=== PATIENT | male | born 1960 | race Two or more races ===

== ENCOUNTER 2025-01-16 11:55 | Day surgery (SDC) | payer MEDICAID, SELFPAY ==
[2025-01-15 14:04] VITALS: BMI 23.6
[2025-01-16] VITALS (10 sets, daily range): BP systolic 101–139; BP diastolic 60–90; PULSE 78–103; RESP 14–21; TEMP 37–37.2; O2SAT 93–98; BMI 22.9
[2025-01-16] MEDS: MIDAZOLAM INJ 1 MG/ML VIAL 2 ML (ASD USE ONLY) 2 MG IV (13:09)
[2025-01-16] MEDS: RINGERS LACTATED 1000 ML 1,000 ML 100 ML IV (13:09)
[2025-01-16] MEDS: fentaNYL CIT INJ 50 mCg/ML AMP 2ML (ASD USE ONLY) IV (13:10)
--- NOTE | 2025-01-16 15:09 | SUR.PHASEII ---
1355 Pt more awake and alert. Speaks and understands [place] well. Denies pain or N/V. Abd remains soft. Analilia PO fluids. 1415 Pt assessment unchanged. No complaints. Amb with steady gait. Able to dress self. Pt requesting daughter to interpret for him. DC instructions given. Both state understanding. Pt meets dc criteria-to home.
== END 2025-01-16 14:15 | disposition home or self-care (01) ==
PROVIDERS: PCP Physician Assistant; Referring Provider Surgery; Visit Provider Surgery
PROC: 0DBE8ZX Excision of Large Intestine, Via Natural or Artificial Opening Endoscopic, Diagnostic (ICD-10-PCS; CPT 45380; principal; 2025-01-16 13:45)
DX: Z12.11 Encounter for screening for malignant neoplasm of colon (principal); E11.9 Type 2 diabetes mellitus without complications; J84.10 Pulmonary fibrosis, unspecified; Z80.0 Family history of malignant neoplasm of digestive organs
CPT/HCPCS: 45378; J2250; J3010; J7120